=== PATIENT | female | born 2000 | race Asian ===

== ENCOUNTER 2018-02-20 00:50 | Emergency (ER) | payer SELFPAY ==
[~2018-02-20] VITALS: Ht 160 cm; Wt 54.4 kg
--- NOTE | 2018-02-20 00:50 | NUR ---
PT ANUEL ALS. TAKEN TO BED 4
[2018-02-20 00:56] VITALS: BP 108/68
[2018-02-20] MEDS ORDERED: ONDANSETRON 4 MG/2 ML VIAL ONE (00:58)
[2018-02-20] MEDS ORDERED: NACL 0.9% 1,000 ML IV ONE (01:00)
[2018-02-20] MEDS ORDERED: ONDANSETRON 4 MG/2 ML VIAL IVP ONE (01:00)
--- NOTE | 2018-02-20 01:02 | NUR ---
17Y F ANUEL FROM [facility] FOR ETOH AND VOMIT. EMS STATES THEY ARRIVED ON SCENE WITH PT ON THE GRASS. EMS ESTABLISHED IV 20 TO L HAND. ER MD DR HUNG MADE AWARE.
[2018-02-20 01:16] LABS: BASOPHILS # (AUTO) 0.2 K/uL (0.00-0.22); BASOPHILS % (AUTO) 1.5 % (0.0-2.0); EOSINOPHILS # (AUTO) 0.1 K/uL (0-0.4); EOSINOPHILS % (AUTO) 0.8 % (0.0-4.0); HEMATOCRIT 35.2 % (36-48); HEMOGLOBIN 11.8 g/dL (12.0-16.0); LYMPHOCYTES # (AUTO) 3.6 K/uL (2.5-16.5); LYMPHOCYTES % (AUTO) 30.8 % (20.5-51.1); MEAN CORPUSCULAR HEMOGLOBIN 31 pg (27-31); MEAN CORPUSCULAR HGB CONC 34 g/dL (33-37); MEAN CORPUSCULAR VOLUME 91.8 fL (80-94); MONOCYTES # (AUTO) 0.4 K/uL (0.8-1.0); MONOCYTES % (AUTO) 3.7 % (1.7-9.3); NEUTROPHILS # (AUTO) 7.4 K/uL (1.8-7.7); NEUTROPHILS % (AUTO) 63.2 % (42.2-75.2); PLATELET COUNT (AUTO) 265 K/uL (140-450); RED BLOOD CELL COUNT(AUTO) 3.83 MIL/uL (4.20-5.40); RED CELL DISTRIBUTION WIDTH 12.2 % (11.6-13.7); WHITE BLOOD COUNT (AUTO) 11.7 K/uL (4.5-11.0)
--- NOTE | 2018-02-20 01:28 | NUR ---
LAB AT BEDSIDE-BLOOD SENT
--- NOTE | 2018-02-20 01:38 | NUR ---
[employer] MIKAL GOULD CAME TO SEE PT, SHE LEFT A TAX VOUCHER FOR PT. PT TO CALL CAMPUS ON DISCHARGE FROM [facility] ER AT [phone]
[2018-02-20 01:43] LABS: ANION GAP 15.9 (8-16); CARBON DIOXIDE 25.1 mmol/L (21-32); CREATININE 0.7 mg/dL (0.6-1.3)
[2018-02-20 01:49] LABS: ALBUMIN 3.5 g/dL (3.4-5.0); TOTAL BILIRUBIN 0.2 mg/dL (0.0-1.0)
--- NOTE | 2018-02-20 01:56 | NUR ---
Patient appears to be resting comfortably in bed. Vital Signs within normal limits. Respirations even and unlabored.
--- NOTE | 2018-02-20 05:17 | NUR ---
PT AMB W/O ASST TO [facility]
--- NOTE | 2018-02-20 05:59 | NUR ---
PT AMB W/O ASST TO [facility]
--- NOTE | 2018-02-20 06:03 | NUR ---
IV removed, catheter intact and site benign. Applied folded 4x4 gauze and tape to stop bleeding.
--- NOTE | 2018-02-20 06:03 | NUR ---
Patient presented to facility under the influence of Alcohol. Patient is currently ambulatory with steady gait, able to walk unassisted. Positive gag reflex. Alert and oriented. Is not driving self for discharge out of facility. PT STATES SHE WILL CALL [facility] FOR RIDE. PT WAS ADDRESSED THAT [facility] WAS HERE EARLIER, GIVEN NAME AND CONTACT WHEN PT IS DISCHARGE, PT AGREES TO CALL [facility].
[2018-02-20 06:55] VITALS: BP 119/72
--- NOTE | 2018-02-20 06:55 | NUR ---
Patient discharged with v/s stable. Written and verbal after care instructions given and explained. Patient verbalized understanding. Ambulatory with steady gait. All questions addressed prior to discharge. Advised to follow up with PMD.
== END 2018-02-20 06:55 | disposition home or self-care (01) ==
LOC: MED 00:50
DX: F10.129 Alcohol abuse with intoxication, unspecified (principal); R40.4 Transient alteration of awareness
CPT/HCPCS: 36415; 80053; 85025; 96361; 96374; 99284; G0482; J2405; J7030